=== PATIENT | female | born 1930 | race Caucasian/White ===

== ENCOUNTER → 2017-07-24 | Outpatient (CLI) | payer OTHER ==
[~2017-07-24] MED LIST: CARDIZEM CD120 MG PO; COZAAR 25 MG TA25 MG PO; COZAAR 50 MG TA50 M2 PO; LEVOTHYROXINE 0.1 MG PO; LOPRESSOR25 PO; LOPRESSOR50; LOVASTATIN 20 M20 MG PO; NORCO 5-325 TA1 EACH PO; VITAMIN D2000 UNI1 PO; XALATAN2.5 ML OPHTHALMIC; XANAX 0.5 MG0.5 MG PO
== END ==
LOC: CAT 08:54
PROVIDERS: Family Medicine
DX: K44.9 Diaphragmatic hernia without obstruction or gangrene (principal); I25.10 Atherosclerotic heart disease of native coronary artery without angina pectoris; I77.811 Abdominal aortic ectasia; I70.0 Atherosclerosis of aorta; M47.899 Other spondylosis, site unspecified; Z85.038 Personal history of other malignant neoplasm of large intestine

== ENCOUNTER 2018-03-17 11:04 | Emergency (ER) | payer OTHER ==
[~2018-03-17] VITALS: Ht 157.5 cm; Wt 61.2 kg
[2018-03-17 11:32] LABS: URINE BILIRUBIN NEGATIVE (Negative); URINE BLOOD NEGATIVE (Negative); URINE CLARITY CLEAR; URINE COLOR YELLOW; URINE GLUCOSE-RANDOM* NEGATIVE (Negative); URINE KETONES NEGATIVE (Negative); URINE NITRITE-REFLEX NEGATIVE (Negative); URINE PROTEIN (DIPSTICK) NEGATIVE (Negative); URINE SPECIFIC GRAVITY <= 1.005 (1.005-1.035); URINE UROBILINOGEN 0.2 E.U./dl (0.2-1.0)
[2018-03-17 11:43] LABS: URINE LEUKOCYTES-REFLEX 3+ (Negative)
[2018-03-17 12:43] LABS: CASTS None Seen /LPF (None Seen); CRYSTALS None Seen /LPF (None Seen); SQUAMOUS 0-3 Few /LPF (0-3); URINE RBC 0-2 Rare /HPF (0-2)
[2018-03-17 12:44] LABS: BACTERIA-REFLEX >30 Many /HPF (None Seen); URINE WBC-REFLEX >25 Many /HPF (0-5)
[2018-03-17] MEDS ORDERED: KEFLEX500 M1 PO (12:48)
[2018-03-17 13:42] VITALS: BP 124/78
== END 2018-03-17 13:45 | disposition home or self-care (01) ==
LOC: ER 11:04
PROVIDERS: Physician Assistant
DX: N30.00 Acute cystitis without hematuria (principal); E89.0 Postprocedural hypothyroidism; I10 Essential (primary) hypertension; E78.00 Pure hypercholesterolemia, unspecified; F41.9 Anxiety disorder, unspecified; Z88.6 Allergy status to analgesic agent; Z90.710 Acquired absence of both cervix and uterus; Z96.641 Presence of right artificial hip joint; Z85.038 Personal history of other malignant neoplasm of large intestine

== ENCOUNTER → 2019-03-18 | Outpatient (CLI) | payer OTHER ==
[~2019-03-18] MED LIST changes: +KEFLEX500 M1 PO
== END ==
LOC: NUC 03-05 13:13 → CAT 13:37 → NUC 13:37
DX: M41.86 Other forms of scoliosis, lumbar region (principal); M47.815 Spondylosis without myelopathy or radiculopathy, thoracolumbar region; I70.0 Atherosclerosis of aorta; K56.41 Fecal impaction; Z90.49 Acquired absence of other specified parts of digestive tract; Z90.710 Acquired absence of both cervix and uterus; Z78.0 Asymptomatic menopausal state